=== PATIENT | male | born 1955 | race Caucasian/White ===

== ENCOUNTER 2023-03-07 15:57 | Emergency (ER) | payer BC ==
[~2023-03-07] VITALS: Ht 172.7 cm; Wt 106.6 kg
[2023-03-07 16:09] VITALS: BP_SYST 138; PULSE 122; RESP 18; TEMP 98.3; O2SAT 96
[2023-03-07] MEDS ORDERED: NACL 0.9% 1,000 ML IV ONE (16:15)
[2023-03-07 17:05] LABS: BASOPHILS # (AUTO) 0.1 K/uL (0.0-0.2); BASOPHILS % (AUTO) 0.6 % (0.0-2.0); EOSINOPHILS # (AUTO) 0.1 K/uL (0.0-0.4); EOSINOPHILS % (AUTO) 1.1 % (0.0-4.0); HEMATOCRIT 37.2 % (36-54); HEMOGLOBIN 13.2 g/dL (14.0-18.0); LYMPHOCYTES # (AUTO) 0.4 K/uL (1.0-5.5); MEAN CORPUSCULAR HEMOGLOBIN 32 pg (27-31); MEAN CORPUSCULAR HGB CONC 35 % (32-36); MEAN CORPUSCULAR VOLUME 91 fL (79.0-98.0); MONOCYTES # (AUTO) 0.6 K/uL (0.0-1.0); MONOCYTES % (AUTO) 5.5 % (1.7-9.3); NEUTROPHILS # (AUTO) 9.8 K/uL (1.8-7.7); NEUTROPHILS % (AUTO) 88.8 % (40.0-70.0); PLATELET COUNT (AUTO) 439 K/uL (130-430); RED CELL DISTRIBUTION WIDTH 12.7 % (9.0-15.0)
[2023-03-07 17:09] LABS: CREATININE 1.34 mg/dL (0.55-1.30); POTASSIUM 3.3 mmol/L (3.5-5.1)
[2023-03-07 17:15] LABS: ALBUMIN 3.3 g/dL (3.4-4.8); BILIRUBIN,DIRECT 0.1 mg/dL (0.0-0.3); TOTAL BILIRUBIN 0.3 mg/dL (0.0-1.0); TOTAL PROTEIN, SERUM 7.8 g/dL (6.4-8.3)
[2023-03-07] MEDS ORDERED: CETI10CA PO ×2 (18:47→19:09)
[2023-03-07] MEDS ORDERED: CEPH250C PO ×2 (18:47→19:09)
[2023-03-07 19:15] VITALS: BP_SYST 138; PULSE 122; RESP 18; TEMP 98.3; O2SAT 96
== END 2023-03-07 19:15 | disposition home or self-care (01) ==
LOC: SED 15:57
DX: J40 Bronchitis, not specified as acute or chronic (principal); R10.13 Epigastric pain; R11.10 Vomiting, unspecified; R19.7 Diarrhea, unspecified; Z91.041 Radiographic dye allergy status; Z85.528 Personal history of other malignant neoplasm of kidney; Z79.899 Other long term (current) drug therapy
CPT/HCPCS: 36415; 76376; 80048; 80076; 83690; 85025; 99284